=== PATIENT | female | born 1965 | race Caucasian/White ===

== ENCOUNTER 2023-01-13 06:33 | Emergency (ER) | payer BC ==
[~2023-01-13] VITALS: Ht 160 cm; Wt 65.8 kg
[2023-01-13 06:55] VITALS: BP_SYST 124; PULSE 79; RESP 19; TEMP 97.2; O2SAT 100
[2023-01-13] MEDS ORDERED: ONDANSETRON HCL 4 MG/2 ML VIAL IVP ONE (07:00)
[2023-01-13] MEDS ORDERED: NACL 0.9% 1,000 ML IV ONE (07:00)
[2023-01-13] MEDS ORDERED: PANTOPRAZOLE SODIUM 40 MG/VIAL (PROTONIX) IVP ONE (07:00)
[2023-01-13 07:27] LABS: BASOPHILS % (AUTO) 0.3 % (0.0-2.0); EOSINOPHILS % (AUTO) 0.2 % (0.0-4.0); HEMATOCRIT 42.5 % (36-48); HEMOGLOBIN 13.9 g/dL (12.0-16.0); LYMPHOCYTES # (AUTO) 1.2 K/uL (1.0-5.5); LYMPHOCYTES % (AUTO) 11.6 % (20.5-51.5); MEAN CORPUSCULAR HEMOGLOBIN 30 pg (27-31); MEAN CORPUSCULAR HGB CONC 33 % (32-36); MEAN CORPUSCULAR VOLUME 91 fL (79.0-98.0); MONOCYTES # (AUTO) 0.3 K/uL (0.0-1.0); MONOCYTES % (AUTO) 2.5 % (1.7-9.3); NEUTROPHILS % (AUTO) 85.4 % (40.0-70.0); PLATELET COUNT (AUTO) 251 K/uL (130-430); RED BLOOD CELL COUNT(AUTO) 4.66 MIL/uL (4.2-6.2); RED CELL DISTRIBUTION WIDTH 13.2 % (9.0-15.0); WHITE BLOOD COUNT (AUTO) 10.5 K/uL (4.8-10.8)
[2023-01-13 07:35] LABS: CALCIUM 8.8 mg/dL (8.4-11.0); CREATININE 0.59 mg/dL (0.55-1.30); POTASSIUM 3.5 mmol/L (3.5-5.1)
[2023-01-13 07:41] LABS: TOTAL BILIRUBIN 0.7 mg/dL (0.0-1.0); TOTAL PROTEIN, SERUM 7.9 g/dL (6.4-8.3)
[2023-01-13] MEDS ORDERED: OMEP40CA20 PO (08:36)
[2023-01-13] MEDS ORDERED: ONDA-8 TL (08:36)
[2023-01-13 08:45] VITALS: BP_SYST 124; PULSE 79; RESP 19; TEMP 97.2; O2SAT 96
== END 2023-01-13 08:46 | disposition home or self-care (01) ==
LOC: SED 06:33
DX: K29.70 Gastritis, unspecified, without bleeding (principal); R11.10 Vomiting, unspecified; R10.11 Right upper quadrant pain; K21.9 Gastro-esophageal reflux disease without esophagitis; Z79.899 Other long term (current) drug therapy
CPT/HCPCS: 99284; 96374; 96361; 96375; 80053; 83690; 85025; 36415; J2405; C9113; J7030